=== PATIENT | female | born 1970 | race Asian ===

== ENCOUNTER 2018-12-21 15:37 | Emergency (ER) | payer OTHER ==
[~2018-12-21] VITALS: Ht 162.6 cm; Wt 93.0 kg
[~2018-12-21 15:37] MED LIST: IBUPROFEN200 M1 PO
[2018-12-21 16:42] VITALS: BP 115/83; TEMP 100.4
== END 2018-12-21 16:42 | disposition home or self-care (01) ==
LOC: ED 15:37
DX: S61.451A Open bite of right hand, initial encounter (principal); L03.113 Cellulitis of right upper limb; Y04.1XXA Assault by human bite, initial encounter
CPT/HCPCS: 90471; 90715; 99282